=== PATIENT | male | born 1995 | race Caucasian/White ===

== ENCOUNTER 2020-08-01 10:48 | Emergency (ER) | payer MEDICAID ==
[~2020-08-01] VITALS: Ht 177.8 cm; Wt 87.5 kg
[2020-08-01 11:01] VITALS: BP 123/84
== END 2020-08-01 11:55 | disposition home or self-care (01) ==
LOC: ER 11:02
DX: S80.12XA Contusion of left lower leg, initial encounter (principal); J45.909 Unspecified asthma, uncomplicated; W22.8XXA Striking against or struck by other objects, initial encounter; Y93.51 Activity, roller skating (inline) and skateboarding; Y92.89 Other specified places as the place of occurrence of the external cause; Y99.8 Other external cause status
CPT/HCPCS: 73590-TC